=== PATIENT | female | born 2005 | race Caucasian/White ===

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

== ENCOUNTER 2025-02-08 06:45 | Outpatient (REF) | payer BC, SELFPAY ==
--- NOTE | ~2025-02-08 | US_ITS ---
Examination: US Extremity Nonvas Limited Rt TECHNIQUE: Grayscale and color Doppler imaging was performed in the right gluteal region. Trauma 5 months earlier Comparison 12/25/2024 INDICATION: follow-up right gluteal region mass FINDINGS: Again seen is an oval mass at the junction of the deep and superficial subcutaneous soft tissues in the right gluteal region. It is hyperechoic. Peripherally it is hyperechoic and centrally it is isoechoic to fat. There is no increased through transmission. It measures 1.1 x 1.0 x 0.7 cm, previous study 1.1 x 1.3 x 0.7 cm. On the prior study, there was an anechoic fluid in plane extending around the mass. Fluid has resolved. US/US Extremity Nonvas Limited RT Impression: Stable nonspecific mass in the subcutaneous soft tissues of the right gluteal region. Interval resolution of fluid that was seen extending in plane with the mass on the prior. If more definitive characterization is needed, follow-up right gluteal MRI without and with IV contrast. Electronically signed by: Edmund Chavarria MD 02/08/2025 12:16 PM J[facility]
--- OUTSIDE RECORDS SUMMARY | 2025-02-08 06:48 | XMS_ITS | Encounter Summary ---
Author Organization [facility] Address [address] [place] [address] Care Team Providers Care Leather Polisher Name Role Phone Domingo Coronel MD Primary Care Provider [phone] Encounter Details Date Type Department Care Team (Late st Contact Info) Description 07/02/2014 Scanned Document [facility] Rosemary Guerrero [address] [place] [address] External, Provider Social History Tobacco Use Types [...] External LAB BLOOD ORDERABLES Final Res ult [facility] [place], [place], [facility] documented in this encounter Visit Diagnoses Not on filedocumented in this encounter Additional Health Concerns Infection Onset Date Last Indicated Resolved Time R/O COVID-19 02/02/2020 02/02/2020 02/03/2020 5:03 PM EST COVID-19 06/01/2021 06/01/2021 06/11/2021 7:20 PM EDT R/O COVID-19 06/26/2022 06/26/2022 2022 7:18 PM EDT documented as of this encounter Care Teams Leather Polisher Relationship Specialty Start Date End Date Domingo Coronel MD [address] [place] [address] PCP - General Pediatrics 10/08/16 documented as of this encounter
--- OUTSIDE RECORDS SUMMARY | 2025-02-08 06:48 | XMS_ITS | Encounter Summary ---
Author Organization [facility] Address [address] [place] [address] Care Team Providers Care Senior Qa Tester Name Role Phone Domingo Coronel MD Primary Care Provider [phone] Encounter Details Date Type Department Care Team (Late st Contact Info) Description 07/04/2014 Scanned Document [facility] Rosemary Guerrero [address] [place] [address] External, Provider Social History Tobacco Use Types [...] External LAB BLOOD ORDERABLES Final Res ult [facility] [place], [place], [facility] documented in this encounter Visit Diagnoses Not on filedocumented in this encounter Additional Health Concerns Infection Onset Date Last Indicated Resolved Time R/O COVID-19 02/02/2020 02/02/2020 02/03/2020 5:03 PM EST COVID-19 06/01/2021 06/01/2021 06/11/2021 7:20 PM EDT R/O COVID-19 06/26/2022 06/26/2022 2022 7:18 PM EDT documented as of this encounter Care Teams Senior Qa Tester Relationship Specialty Start Date End Date Domingo Coronel MD [address] [place] [address] PCP - General Pediatrics 10/08/16 documented as of this encounter
--- OUTSIDE RECORDS SUMMARY | 2025-02-08 06:48 | XMS_ITS | Encounter Summary ---
Author Organization [facility] ou and Home [facility] Address [address] [place] [address] Care Team Providers Care Director Of Medical Education Name Role Phone Domingo Coronel MD Primary Care Provider [phone] Encounter Details Date Type Department Care Team ([facility] st Contact Info) Description 12/27/2020 Abstract Pediatric [place] [address] [facility] [address] [place] [address] Domingo Coronel MD [address] [place] [address] [address] [place] [phone] Social History Tobacco Use Types Packs/Day Years [...] of this encounter Care Teams Director Of Medical Education Relationship Specialty Start Date End Date Domingo Coronel MD [address] [place] [address] PCP - General Pediatrics 10/08/16 documented as of this encounter
--- OUTSIDE RECORDS SUMMARY | 2025-02-08 06:48 | XMS_ITS | Encounter Summary ---
Author Organization [facility] and Home Health Address [address] [place] [address] Care Team Providers Care Hammer Setter Name Role Phone Domingo Coronel MD Primary Care Provider [phone] Encounter Details Date Type Department Care Team (Late st Contact Info) Description 03/30/2023 Scanned Document [facility] Rosemary Guerrero [address] [place] [address] Domingo Coronel MD [address] [place] [phone] Social History Tobacco Use Types Packs/Day [...] documented as of this encounter Care Teams Hammer Setter Relationship Specialty Start Date End Date Domingo Coronel MD [address] [place] [address] PCP - General Pediatrics 10/08/16 documented as of this encounter
--- OUTSIDE RECORDS SUMMARY | 2025-02-08 06:48 | XMS_ITS | Encounter Summary ---
Author Organization [facility] ou and Home Health Address [address] [place] [address] Care Team Providers Care Candle Wicker Name Role Phone Domingo Coronel MD Primary Care Provider [phone] Encounter Details Date Type Department Care Team ([facility] st Contact Info) Description 08/09/2020 Abstract Pediatric [place] [address] [facility] [address] [place] [address] Domingo Coronel MD [address] [place] [address] [address] [place] [phone] Social History Tobacco Use Types Packs/Day Years [...] documented as of this encounter Care Teams Candle Wicker Relationship Specialty Start Date End Date Domingo Coronel MD [address] [place] [address] PCP - General Pediatrics 10/08/16 documented as of this encounter
--- OUTSIDE RECORDS SUMMARY | 2025-02-08 06:48 | XMS_ITS | Encounter Summary ---
Author Organization [facility] ou and Home Health Address [address] [place] [address] Care Team Providers Care Waterworks Pump Station Operator Name Role Phone Domingo Coronel MD Primary Care Provider [phone] Encounter Details Date Type Department Care Team (Late st Contact Info) Description 07/31/2021 Scanned Document [facility] Rosemary Guerrero [address] [place] [address] Domingo Coronel MD [address] [place] [phone] Social History Tobacco Use Types Packs/Day [...] documented as of this encounter Care Teams Waterworks Pump Station Operator Relationship Specialty Start Date End Date Domingo Coronel MD [address] [place] [address] PCP - General Pediatrics 10/08/16 documented as of this encounter
--- OUTSIDE RECORDS SUMMARY | 2025-02-08 06:48 | XMS_ITS | Clinical Summary ---
Author Organization [facility] Address [address] [place] [address] Phone Care Team Providers Care Rotor Winder Name Role Phone Jaleel Reed MD Primary Care Provider [phone] Social History Tobacco Use Types Packs/Day Years Used Date Smoking Tobacco: Never Assessed Education Answer Date Recorded Are you interested in more education? Not on natasha e 11/12/2024 Are you concerned about learning? Not on file 11/12/2024 No 11/12/2024 No 11/12/2024 Digital Access Answer Date Recorded No 11/12/2024 No 11/12/2024 Reliable internet access at home? Not on file 11/12/2024 Device with a working camera? Not on file Comments Unknown Sex and Gender Information Value Date Recorded Sex Assigned at Not on file Legal Sex Female 4:04 PM EDT Gender Identity Not on file Sexual Orientation Not on file Plan of Treatment Upcoming Encounters Date Type Department Care Team (Late st Contact Info) Description 02/19/2025 4:00 PM EST Office Visit [facility] [address] [place] [address] [place] [address] Rubia Augustin MD [address] [facility], 2nd [place] [address] Health Maintenance Due Date Last Done Comments MMR VACCINES (1 of 1 - Stand hank series) 2006 BMI ASSESSMENT 2008 DEVELOPMENTAL/BEHAVIORAL SCR EENING (PHQ, PSC, or SWYC) 2008 COMBINED DTaP,Tdap,Td (1 - Tdap) 2012 DEPRESSION SCREENING 2017 SMOKING Hx and SMOKELESS TOB ACCO SCREENING 2018 VARICELLA VACCINES (1 of 2 - 13+ 2-dose series) 2018 HPV VACCINES (1 - 3-dose series) 2020 CHLAMYDIA SCREENING 2021 MENINGOCOCCAL VACCINES (B) ( 1 of 2 - Standard) 2021 ADOLESCENT UNIVERSAL LIPID SCREENING 2022 HEPATITIS C SCREENING 07/07/2023 HIV ONE-TIME SCREENING (18-6 5 YEARS) 07/07/2023 HEPATITIS B VACCINES (1 of 3 - 19+ 3-dose series) 2024 INFLUENZA VACCINE (#1) 2024 COVID-19 VACCINE (1 - 2024-2 6 season) 2024 HEPATITIS A VACCINES Aged Out No long er eligible based on patient's age to complete this topic HIB VACCINES Aged Out No longer eligi ble based on patient's age to complete this topic MENINGOCOCCAL VACCINES (ACWY) Aged Out No longer eligible based on patient's age to complete this topic PNEUMOCOCCAL VACCINES (0-49 years) Aged Out No longer eligible based on patient's age to complete this topic Medical Devices Not on file Insurance EPO Care Teams Rotor Winder Relationship Specialty Start Date End Date Jaleel Reed MD [address] [place] [phone] [email or web address] PCP - General Internal Medicine 01/29/25 Additional Source Comments The information contained in this document represents components of the legal health record. It is not the complete legal health record.[facility]
--- OUTSIDE RECORDS SUMMARY | 2025-02-08 06:48 | XMS_ITS | Encounter Summary ---
Author Organization [facility]up and Home Health Address [address] [place] [address] Care Team Providers Care Spiral Gear Generator Name Role Phone Domingo Coronel MD Primary Care Provider [phone] Encounter Details Date Type Department Care Team (Late st Contact Info) Description 12/28/2014 Scanned Document [facility] Rosemary Guerrero [address] [place], [place] [address] Dilcia Fisher MD [address] [place] [address] Social History Tobacco Use Types Packs/Day Years [...] documented as of this encounter Care Teams Spiral Gear Generator Relationship Specialty Start Date End Date Domingo Coronel MD [address] [place] [address] PCP - General Pediatrics 10/08/16 documented as of this encounter
--- OUTSIDE RECORDS SUMMARY | 2025-02-08 06:48 | XMS_ITS | Encounter Summary ---
Author Organization [facility] and [facility] Address [address] [place] [address] Care Team Providers Care Director Of Strategic Marketing Name Role Phone Domingo Coronel MD Primary Care Provider [phone] Reason for Visit * Reason Comments Medication Refill Encounter Details Date Type Department Care Team (Late st Contact Info) Description 07/18/2022 Refill [facility] [place] [address] [place], [place] [phone] Araceli Fernández PA [address] [place] [address] Medication Refill Social History Tobacco [...] of this encounter Care Teams Director Of Strategic Marketing Relationship Specialty Start Date End Date Domingo Coronel MD [address] [place] [address] PCP - General Pediatrics 10/08/16 documented as of this encounter
--- OUTSIDE RECORDS SUMMARY | 2025-02-08 06:48 | XMS_ITS | Encounter Summary ---
Author Organization [facility] and [facility] Address [address] [place] [address] Care Team Providers Care Customer Solutions Supervisor Name Role Phone Domingo Coronel MD Primary Care Provider Encounter Details Date Type Department Care Team (Late st Contact Info) Description 06/26/2014 Scanned Document [facility] Rosemary Guerrero [address] [place], [place] [phone] Dilcia Fisher MD [address] [place] [address] Social History Tobacco Use Types Packs/Day Years [...] documented as of this encounter Care Teams Customer Solutions Supervisor Relationship Specialty Start Date End Date Domingo Coronel MD [address] [place] [address] PCP - General Pediatrics 10/08/16 documented as of this encounter
--- OUTSIDE RECORDS SUMMARY | 2025-02-08 06:48 | XMS_ITS | Clinical Summary ---
Author Organization [place] [address] Address [address] [place] [address] Care Team Providers Care Truck Bench Mechanic Name Role Phone Domingo Coronel MD Primary Care Provider [phone] Allergies Active Allergy Reactions Criticality Noted Date [...] Date Resolved Date Urticaria 10/26/2018 Overview (10/03/2014): [facility] Immunizations Immunization Administration Dates Next Due COVID-19 Vaccine - PFIZER 08/09/2020,07/19/2020 DTaP 08/22/2010,12/24/2006 [id number] 04/22/2006,2005,2005 Hep A, ped/adol, 2 dose 10/11/2017,10/08/2016 [...] 10/26/2023 Meningococcal MCV4P - Menactra 10/08/2016 Meningococcal conjugate quad rivalent (MenACWY-TT) MCV4 01/06/2023 Pneumococcal conjugate PCV 7 07/08/2006, 04/22/2006,2005,09/04 [...] patient's age to complete this topic Insurance [facility] Care Teams Truck Bench Mechanic Relationship Specialty Start Date End Date Domingo Coronel MD [address] [place] [address] PCP - General Pediatrics 10/08/16
--- OUTSIDE RECORDS SUMMARY | 2025-02-08 06:48 | XMS_ITS | Encounter Summary ---
Author Organization [facility] Address [address] [place] [address] Care Team Providers Care Dock Boss Name Role Phone Domingo Coronel MD Primary Care Provider [phone] Encounter Details Date Type Department Care Team (Latest Contact Info) Description 03/18/2018 Transcribed Orders [facility] Pediatrics Rosemary Guerrero [address] [place], [place] [address] Domingo Coronel MD [address] [place] [phone] Dysuria (Primary Dx); Frequency of urination [...] Yellow 03/18/2018 4:22 PM EST [facility] Clarity, UA Clear Clear 03/18/2018 4:22 PM EST [facility] pH, UA 6.0 5.0 - 7.0 03/18/2018 4:22 PM EST [facility] Specific [place], UA 1.019 1.003 - 1.035 03/18/2018 4:22 PM [facility] Protein, UA Negative Negative mg/dL 03/18/2018 4:22 PM [facility] Glucose, UA Negative Negative mg/dL 03/18/2018 4:22 PM [facility] Nitrite, UA Negative Negative 03/18/2018 4:22 PM [facility] Leukocytes, UA Negative Negative Sonny/uL 03/18/2018 4:22 PM [facility] Blood, UA Negative Negative 03/18/2018 4:22 PM [facility] Ketones, UA Negative Negative mg/dL 03/18/2018 4:22 PM [facility] Urobilinogen, UA Negative Negative EU/dL 03/18/2018 4:22 PM [facility] Bilirubin, UA Negative Negative mg/dL 03/18/2018 4:22 PM [facility] RBC/HPF, UA <1 0 - 3 /HPF 03/18/2018 4:22 PM [facility] WBC/HPF, UA 1 0 - 5 /HPF 03/18/2018 4:22 PM [facility] Urine Squamous Epithelial Cells, UA 2 0 - 5 /HPF 03/18/2018 4:22 PM [facility] Urine specimen (specimen) Collection / Unknown 03/18/2018 3:46 PM EST 03/18/2018 3:46 PM EST us Domingo Coronel MD URINE ORDERABLES Final Result [facility] [address] [place] [address], [facility] [phone] documented in this encounter Visit Diagnoses [...] documented as of this encounter Care Teams Dock Boss Relationship Specialty Start Date End Date Domingo Coronel MD [address] [place] [address] PCP - General Pediatrics 10/08/16 documented as of this encounter
== END 2025-02-08 06:46 | disposition home or self-care (01) ==
LOC: HO.UMASIMG 06:45
PROVIDERS: Visit Provider Emergency Medicine
DX: R22.41 Localized swelling, mass and lump, right lower limb (principal)
CPT/HCPCS: 76882

== ENCOUNTER → 2025-02-08 10:42 | Outpatient (BNV) | payer BC, SELFPAY | PROVIDERS: Visit Provider Radiology Diagnostic Radiology | DX: R22.2 Localized swelling, mass and lump, trunk (principal) | CPT/HCPCS: 76882 ==